=== PATIENT | male | born 1990 | race Hispanic/Latino ===

== ENCOUNTER 2017-11-30 13:53 | Inpatient (IN) | payer SELFPAY ==
[2017-11-30] MEDS ORDERED: ONDANSETRON 4 MG/2 ML VIAL ONE ×2 (14:39→19:29)
[2017-11-30] MEDS ORDERED: MORPHINE 4 MG/ML SYR ONE (14:39)
[2017-11-30] MEDS ORDERED: NA CHLORIDE 0.9% 1,000 ML ONE (14:39)
[2017-11-30 14:49] LABS: Urine Blood NEGATIVE (NEG); Urine Glucose NEGATIVE (NEG); Urine Protein 1+ (NEG); Urine Specific Gravity 1.025 (1.005-1.030)
[2017-11-30 15:00] LABS: Absolute Lymphocytes (CBC) 1.8 K/uL (0.7-4.9); Absolute Monocytes 1.2 K/uL (0.1-1.3); Absolute Neutrophil 19.5 K/uL (1.8-8.0); Basophils % 0.1 % (0-1.3); Hematocrit 50.4 % (39.6-49.0); MCH 29.3 pg (27.0-35.0); MCV 87.8 fL (80-100); MPV 10.3 fL (7.6-11.3); Monocytes % 5.2 % (3.3-12.3); RBC Red Blood Cell Count 5.75 M/uL (4.33-5.43)
--- NOTE | 2017-11-30 15:10 | RAD REPORT ---
EXAM DESCRIPTION: CTAbdomen Pelvis W Contrast - 11/30/2017 2:53 pm CLINICAL HISTORY: Abdominal pain. ABDOMINAL PAIN, IV ONLY COMPARISON: None TECHNIQUE: Biphasic CT imaging of the abdomen and pelvis was performed with 100 ml non-ionic IV cont rast. All CT scans are performed using dose optimization technique as appropriate and may include automated exposure control or mA/KV adjustment according to patient size. FINDINGS: The lung bases are clear.Small hiatal hernia. The liver, spleen, pancreas, adrenal glands and kidneys are within normal limits. No bowel obstruction, free air, free fluid or abscess. The distal appendix is dilated to 16 mm and c ontains a large appendicolith. Mild periappendiceal fat stranding seen. Tiny air bubble is seen in th e wall of the distal appendix. No evidence of significant lymphadenopathy. No suspicious bony findings. IMPRESSION: Acute appendicitis is noted as detailed above with evidence of early perforation seen.
[2017-11-30 15:13] LABS: ALT/SGPT 44 U/L (12-78); AST/SGOT 24 U/L (15-37); Alkaline Phosphatase 104 U/L (45-117); Amylase Level 43 U/L (25-115); BUN Blood Urea Nitrogen 10 mg/dL (7-18); Bicarbonate 26 mmol/L (21-32); Bilirubin Direct < 0.1 mg/dL (0-0.2); Bilirubin Total 0.5 mg/dL (0.2-1.0); Glucose Level 112 mg/dL (74-106); Lipase 201 U/L (73-393); Potassium 3.9 mmol/L (3.5-5.1); Protein, Total 8.6 g/dL (6.4-8.2); Sodium Level 135 mmol/L (136-145)
[2017-11-30] MEDS ORDERED: CEFOXITIN/SWI 1gm 1 GM/10 ML SYR ONE (15:29)
--- NOTE | 2017-11-30 15:30 | EDPHYS ---
Physician Documentation [facility] Name: Norberto Kerr Age: 27 yrs Sex: Male : 1990 Arrival Date: 11/30/2017 Time: 13:58 Bed 7 Private MD: None, None ED Physician Osmel Salter HPI: 11/30 14:53 This 27 yrs old Male presents to ER via Ambulatory with complaints of jmm Abdominal Pain, Vomiting. 14:53 The patient presents with abdominal pain in the lower abdomen, in the periumbilical jmm area. Onset: The symptoms/episode began/occurred acutely, last night. The symptoms do not radiate. Associated signs and symptoms: Pertinent positives: nausea and vomiting, Pertinent negatives: diarrhea. This is a 27 year old male with no chronic medial conditions that presents to the ED with lower abdominal pain, vomiting beginning last night. Denies recent travel, infectious exposure or recent antibiotic use. Denies surgical history. . Historical: - Allergies: 14:11 No Known Allergies; aj1 - Home Meds: 14:11 None [Active]; aj1 - PMHx: 14:11 None; aj1 - PSHx: 14:11 None; aj1 - Immunization history:: Flu vaccine is not up to date. - Social history:: Smoking status: Patient/guardian denies using tobacco. - Ebola Screening: : Patient denies travel to an Ebola-affected area in the 21 days before illness onset. ROS: 14:53 Constitutional: Negative for fever, chills, and weight loss, Cardiovascular: Negative jmm for chest pain, palpitations, and edema, Respiratory: Negative for shortness of breath, cough, wheezing, and pleuritic chest pain. 14:53 Abdomen/GI: Positive for abdominal pain, nausea and vomiting. 14:53 Back: Negative for radiated pain. 14:53 MS/extremity: Negative for pain. 14:53 Neuro: Negative for weakness. 14:53 All other systems are negative. Exam: 14:53 Head/Face: atraumatic. Chest/axilla: Normal chest wall appearance and motion. jmm Cardiovascular: Regular rate and rhythm. No edema appreciated Respiratory: Normal respirations, no respiratory distress appreciated 14:53 Constitutional: The patient appears alert, awake, uncomfortable. 14:53 Abdomen/GI: Inspection: abdomen appears normal, Bowel sounds: normal, Palpation: soft, mild abdominal tenderness, in the suprapubic area, right lower quadrant and left lower quadrant. 14:53 Back: ROM is normal, CVA tenderness, is absent. 14:53 Musculoskeletal/extremity: ROM: intact in all extremities. 14:53 Skin: Appearance: Color: normal in color. 14:53 Neuro: Orientation: is normal, Mentation: is normal, Memory: is normal. 14:53 Psych: Behavior/mood is pleasant, cooperative. Vital Signs: 14:11 BP 155 / 109; Pulse 114; Resp 20; Temp 98.2(O); Pulse Ox 96% on R/A; Weight 97.98 kg aj1 (R); Height 5 ft. 4 in. (162.56 cm) (R); Pain 9/10; 15:21 BP 138 / 100; Pulse 107; Resp 16; Pulse Ox 95% on R/A; ae1 16:36 BP 146 / 94; Pulse 105; Resp 17; Pulse Ox 97% on R/A; ae1 16:40 Temp 98.1(O); ae1 16:46 BP 149 / 94; Pulse 105; Resp 16; Pulse Ox 100% ; jl7 14:11 Body Mass Index 37.08 (97.98 kg, 162.56 cm) aj1 MDM: 14:30 Patient medically screened. [facility] 15:27 Data reviewed: vital signs, nurses notes. Counseling: I had a detailed discussion with meli the patient and/or guardian regarding: the historical points, exam findings, and any diagnostic results supporting the discharge/admit diagnosis, lab results, radiology results, the need for further work-up and treatment in the hospital. ED course: Dr. Silveira discussed the patient with Dr. Otero whom accepted admission. . 11/30 14:30 Order name: Urine Dipstick--Ancillary (enter results); Complete Time: 14:58 ag 11/30 14:31 Order name: Amylase, Serum; Complete Time: 15:20 [facility] 11/30 14:31 Order name: Basic Metabolic Panel; Complete Time: 15:20 [facility] 11/30 14:31 Order name: CBC with Diff; Complete Time: 16:10 [facility] 11/30 14:31 Order name: Creatinine for Radiology; Complete Time: 15:20 [facility] 11/30 14:31 Order name: Hepatic Function; Complete Time: 15:20 [facility] 11/30 14:31 Order name: Lipase; Complete Time: 15:20 [facility] 11/30 14:31 Order name: Urine Microscopic Only [facility] 11/30 15:31 Order name: Manual Differential; Complete Time: 16:10 [facility] 11/30 15:35 Order name: Basic Metabolic Panel [facility] 11/30 15:35 Order name: Basic Metabolic Panel [facility] 11/30 15:35 Order name: CBC with Automated Diff [facility] 11/30 15:35 Order name: CBC with Automated Diff [facility] 11/30 14:31 Order name: IV Saline Lock; Complete Time: 14:55 [facility] 11/30 14:31 Order name: Labs collected and sent; Complete Time: 14:55 [facility] 11/30 14:31 Order name: Urine Dipstick-Ancillary (obtain specimen); Complete Time: 14:33 [facility] 11/30 14:31 Order name: CT Abd/Pelvis - W/Contrast; Complete Time: 15:20 [facility] 11/30 15:35 Order name: NPO [facility] 11/30 15:35 Order name: Lipase [facility] 11/30 15:35 Order name: Lipase [facility] 11/30 15:35 Order name: Liver (Hepatic) Function [facility] 11/30 15:35 Order name: Liver (Hepatic) Function [facility] Administered Medications: 14:50 Drug: NS 0.9% 1000 ml Route: IV; Rate: 1 bolus; Site: left antecubital; ae1 15:35 Follow up: IV Status: Completed infusion ae1 14:50 Drug: Zofran 4 mg Route: IVP; Site: left antecubital; ae1 15:33 Follow up: Response: Nausea is decreased ae1 14:55 Drug: morphine 4 mg Route: IVP; Site: left antecubital; ae1 15:23 Follow up: Response: Pain is decreased ae1 15:26 Drug: Mefoxin 1 grams Route: IVPB; Infused Over: 30 mins; Site: left antecubital; ae1 16:00 Follow up: IV Status: Completed infusion ae1 Disposition: 12/01 10:31 Co-signature as Attending Physician, Osmel Salter MD. Disposition: 11/30/17 15:29 Hospitalization ordered by Michael Otero for Inpatient Admission. Preliminary diagnosis is Acute appendicitis. - Bed requested for Telemetry/MedSurg (Inpatient). - Status is Inpatient Admission. jl7 - Condition is Stable. - Problem is new. - Symptoms are unchanged. UTI on Admission? No Signatures: Dispatcher [employer] [facility] Miranda Valdivia, RN RN aj1 Teresa Gonzales RN RN dw Addison Dennis PA PA [facility] Sarmad Danielle RN RN ae1 Danika Flor RN RN jl7 Osmel Salter MD MD gs Corrections: (The following items were deleted from the chart) 11/30 15:32 15:17 CBC Smear Scan ordered. [facility] 16:47 15:29 Hospitalization Ordered by Michael Otero MD for Inpatient Admission. Preliminary diagnosis is Acute appendicitis. Bed requested for Telemetry/MedSurg (Inpatient). Status is Inpatient Admission. Condition is Stable. Problem is new. Symptoms are unchanged. UTI on Admission? No. [facility] 16:51 16:47 11/30/2017 15:29 Hospitalization Ordered by Michael Otero MD for Inpatient jl7 Admission. Preliminary diagnosis is Acute appendicitis. Bed requested for Telemetry/MedSurg (Inpatient). Status is Inpatient Admission. Condition is Stable. Problem is new. Symptoms are unchanged. UTI on Admission? No. dw
--- NOTE | 2017-11-30 15:30 | ER ---
Nurse's Notes [facility] Name: Norberto Kerr Age: 27 yrs Sex: Male : 1990 Arrival Date: 11/30/2017 Time: 13:58 Bed 7 Private MD: None, None Diagnosis: Acute appendicitis Presentation: 11/30 14:06 Presenting complaint: Friend states: "He's having abdominal pain at the top of the aj1 stomach and vomiting. I gave him Tylenol and Pepto-bismol but he kept throwing up" reports this has been going on since last night. Denies fever, diarrhea. Transition of care: patient was not received from another setting of care. Onset of symptoms was November 29, 2017. Risk Assessment: Do you want to hurt yourself or someone else? Patient reports no desire to harm self or others. Initial Sepsis Screen: Does the patient meet any 2 criteria? HR > 90 bpm. No. Patient's initial sepsis screen is negative. Does the patient have a suspected source of infection? No. Patient's initial sepsis screen is negative. Care prior to arrival: None. 14:06 Method Of Arrival: Ambulatory aj 14:06 Acuity: TEVIN 3 aj1 Triage Assessment: 14:11 General: Appears uncomfortable, Behavior is calm, cooperative, appropriate for age. aj1 Pain: Complains of pain in epigastric area Pain currently is 9 out of 10 on a pain scale. GI: Abdomen is non-distended, Reports nausea, vomiting, Patient currently denies diarrhea. Historical: - Allergies: 14:11 No Known Allergies; aj1 - Home Meds: 14:11 None [Active]; aj1 - PMHx: 14:11 None; aj1 - PSHx: 14:11 None; aj1 - Immunization history:: Flu vaccine is not up to date. - Social history:: Smoking status: Patient/guardian denies using tobacco. - Ebola Screening: : Patient denies travel to an Ebola-affected area in the 21 days before illness onset. Screenin:52 Abuse screen: Denies threats or abuse. Nutritional screening: No deficits noted. ae1 Tuberculosis screening: No symptoms or risk factors identified. Fall Risk None identified. Assessment: 14:30 General: Appears in no apparent distress. uncomfortable, Behavior is cooperative, ae1 anxious. Pain: Complains of pain in abdomen. Neuro: Level of Consciousness is awake, alert, obeys commands, Oriented to person, place, time, situation. Cardiovascular: Heart tones S1 S2 present Patient's skin is warm and dry. Respiratory: Airway is patent Respiratory effort is even, unlabored, Respiratory pattern is regular, symmetrical, Breath sounds are clear bilaterally. GI: Abdomen is round Bowel sounds present X 4 quads. Abd is soft and non tender X 4 quads. : No deficits noted. EENT: No deficits noted. Derm: Skin is pale. Musculoskeletal: No signs and/or symptoms reported regarding the musculoskeletal system. 15:00 Reassessment: Patient appears in no apparent distress at this time. Patient and/or ae1 family updated on plan of care and expected duration. Pain level reassessed. States pain is decreased. 15:55 Reassessment: Dr. Otero is a bedside discussing plan of care. ae1 Vital Signs: 14:11 BP 155 / 109; Pulse 114; Resp 20; Temp 98.2(O); Pulse Ox 96% on R/A; Weight 97.98 kg aj1 (R); Height 5 ft. 4 in. (162.56 cm) (R); Pain 9/10; 15:21 BP 138 / 100; Pulse 107; Resp 16; Pulse Ox 95% on R/A; ae1 16:36 BP 146 / 94; Pulse 105; Resp 17; Pulse Ox 97% on R/A; ae1 16:40 Temp 98.1(O); ae1 16:46 BP 149 / 94; Pulse 105; Resp 16; Pulse Ox 100% ; jl7 14:11 Body Mass Index 37.08 (97.98 kg, 162.56 cm) aj1 ED Course: 13:58 Patient arrived in ED. mr 13:59 None, None is Private Physician. mr 14:10 Triage completed. aj1 14:11 Arm band placed on Patient placed in an exam room. aj1 14:13 Addison Dennis PA is PHCP. jm 14:13 Osmel Salter MD is Attending Physician. [facility] 14:19 Sarmad Danielle, SIL is Primary Nurse. ae1 14:52 CT completed. Patient moved to CT via wheelchair. Patient moved back from CT. kw1 14:52 Inserted saline lock: 22 gauge in left antecubital area, using aseptic technique. Blood ae1 collected. 14:53 CT Abd/Pelvis - W/Contrast In Process Unspecified. EDMS 15:15 Placed in gown. Bed in low position. Call light in reach. Side rails up X 1. Adult w/ ae1 patient. Pulse ox on. NIBP on. 15:17 Warm blanket given. ae1 15:29 Michael Otero MD is Hospitalizing Provider. [facility] 16:46 No provider procedures requiring assistance completed. Patient admitted, IV remains in jl7 place. intact, No redness/swelling at site. Administered Medications: 14:50 Drug: NS 0.9% 1000 ml Route: IV; Rate: 1 bolus; Site: left antecubital; ae1 15:35 Follow up: IV Status: Completed infusion ae1 14:50 Drug: Zofran 4 mg Route: IVP; Site: left antecubital; ae1 15:33 Follow up: Response: Nausea is decreased ae1 14:55 Drug: morphine 4 mg Route: IVP; Site: left antecubital; ae1 15:23 Follow up: Response: Pain is decreased ae1 15:26 Drug: Mefoxin 1 grams Route: IVPB; Infused Over: 30 mins; Site: left antecubital; ae1 16:00 Follow up: IV Status: Completed infusion ae1 Outcome: 15:29 Decision to Hospitalize by Provider. [facility] 16:46 Admitted to OR accompanied by nurse, via wheelchair, room 210, with chart, Other [facility] Transported to OR with SIL Yeh 16:46 Condition: stable 16:46 Discharge instructions given to patient, Instructed on the need for admit, Demonstrated understanding of instructions. 16:51 Patient left the ED. [facility] Signatures: Dispatcher [employer] EDMS Miranda Valdivia, RN RN aj1 Addison Dennis PA PA jmm Rivera, Maria mr Sarmad Danielle RN RN ae1 Danika Flor RN RN jl7 Erica Lowe kw1
[2017-11-30 15:32] LABS: Platelet Estimate ADEQ
[2017-11-30] MEDS ORDERED: MORPHINE 4 MG/ML SYR IV PRN (15:32)
[2017-11-30] MEDS ORDERED: ACETAMINOPHEN 500 MG TAB PO PRN (15:32)
[2017-11-30] MEDS ORDERED: ONDANSETRON 4 MG/2 ML VIAL IV PRN (15:32)
[2017-11-30 15:33] LABS: Blood Morphology Comment NOT SEEN (NOT SEEN)
--- NOTE | 2017-11-30 16:16 | P.HP ---
Date of Service: 11/30/17 PC: This 27-year-old male presents emergency room with severe right lower quadrant abdominal pain for diagnosis and treatment. HPC: Patient had sudden onset of right lower quadrant abdominal pain. Began yesterday evening. Has intensified throughout the day. Now hurts whenever he tries to walk. Associated with nausea and vomiting. PMH: Negative PSHx: Denies any surgeries SOC: No known allergies SYS REVIEW: No cough, wheeze, shortness of breath. No chest pain or palpitations. Previously in good health. Works as a extrusion operator. O/E awake alert very uncomfortable HEENT: Not jaundice Chest: Chest movement equal bilaterally ABD: Tenderness with guarding and rebound in the right lower quadrant LOCO: Intact DATA: Elevated white cell count, CT scan demonstrates acute appendicitis with possible rupture IMPRESSION: Acute abdomen with acute appendicitis PLAN: I will take him to the operating room for laparoscopic possible open appendectomy. The risks of this procedure have been discussed. The possibility of bleeding, infection, injury to bowel and blood vessels has been described. The possibility of an open and/or further surgeries and procedures was discussed. He understands and wants us to proceed. He has a friend here who speaks [place], and we conversed through him.
[2017-11-30] MEDS ORDERED: Ringers Lactate 1,000 ML IV ONE (16:42)
[2017-11-30] MEDS ORDERED: PROPOFOL 200 MG/20 ML VIAL IV ONE (17:58)
[2017-11-30] MEDS ORDERED: FENTANYL CITR 100 MCG/2 ML ONE ×2 (17:58→18:36)
[2017-11-30] MEDS ORDERED: ROCURONIUM 50 MG/5 ML VIAL IV ONE ×2 (17:58→18:32)
[2017-11-30] MEDS ORDERED: LIDOCAINE 2% MPF 5 ML VIAL ONE (17:59)
[2017-11-30] MEDS ORDERED: CEFOXITIN 1 GM in NA CHLORIDE 0.9% 100 ML IVPB SCH (18:00)
[2017-11-30] MEDS ORDERED: DEXAMETHASONE 10 MG/ML VIAL ONE (18:36)
[2017-11-30] MEDS ORDERED: KETOROLAC 30 MG/ML INJ ONE (18:37)
[2017-11-30] MEDS ORDERED: NEOSTIGMINE 1 MG/ML -5 ML SYRINGE ONE (18:41)
[2017-11-30] MEDS ORDERED: GLYCOPYRROLATE 0.2 MG/ML SYR ONE (18:41)
--- NOTE | 2017-11-30 19:24 | P.OP ---
Preoperative diagnosis: Acute abdomen with appendicitis Postoperative diagnosis: The same Primary procedure: Laparoscopic appendectomy Anesthesia: General Estimated blood loss: Less than 10 cc Specimen: 1 appendix Findings: Inflamed appendix Operative Technique: The patient brought the operating room and placed supine on the table. After the induction of adequate general endotracheal anesthesia, the area of the abdomen was prepped with a DuraPrep solution, and he was draped in usual aseptic manner. A subumbilical incision was made. This was brought down through the skin and subcutaneous tissue. We entered the fascia at the umbilicus. The patient does have a small umbilical hernia. A 5 mm trocar was then placed in the lower midline, and another on the right lateral side of the abdomen. The patient was then placed in reverse Trendelenburg and rolled to the left. We could visualize the right lower quadrant. We could see an acutely inflamed appendix. It was in the retroperitoneum. The appendix was grasped and the peritoneum divided to free the tip of this markedly inflamed appendix. The mesentery of the appendix was then taken down partially using the electro cautery. The junction of the appendix was identified with the cecum. A window was made into the mesentery of the appendix. The linear Stapler was now introduced into the peritoneal cavity with the camera in the right upper quadrant. We were able to place since across the base of the appendix. The instrument was fired. The mesentery of the appendix was now inspected. We could see with the vascular bundle came in. A vascular reload was now used to take down this portion of the appendix itself. The appendix having been freed, was placed into an Endo-Catch was then brought out through the umbilical trocar site. The right lower quadrant was now inspected hemostasis was ensured. The suture line was identified and found to be nonbleeding. The patient was now returned to the neutral position on the OR table. The umbilical trocar site was now approximated with 2 sutures of absorbable material. The pneumoperitoneum was now collapsed, the sutures tied, and the trocars withdrawn. At the end of the procedure he was stable when sent to the recovery room. Needle sponge instrument count were correct. No drains were placed. Complications: None Transferred to: Recovery Room Condition: Good
[2017-11-30 20:26] VITALS: BMI 34.0
[2017-11-30] MEDS: D5 0.45 NS 1,000 ML IV SCH (20:32)
[2017-11-30] MEDS: HYDROCODONE/APAP 7.5/325 MG TAB PO PRN (23:18)
[2017-12-01] MEDS ORDERED: CEFOXITIN/SWI 1gm 1 GM/10 ML SYR IV SCH
[2017-12-01] MEDS: CEFOXITIN/SWI 1gm 1 GM/10 ML SYR IV SCH ×5 (00:30→23:07)
[2017-12-01] MEDS: D5 0.45 NS 1,000 ML IV SCH ×4 (05:39→23:06)
[2017-12-01] MEDS: HYDROCODONE/APAP 7.5/325 MG TAB PO PRN ×3 (10:01→19:36)
[2017-12-02] MEDS: HYDROCODONE/APAP 7.5/325 MG TAB PO PRN (00:11)
[2017-12-02 00:53] VITALS: O2SAT 95
[2017-12-02] MEDS: CEFOXITIN/SWI 1gm 1 GM/10 ML SYR IV SCH ×2 (05:26→11:46)
[2017-12-02] MEDS: D5 0.45 NS 1,000 ML IV SCH (08:00)
[2017-12-02 12:09] VITALS: BP 126/65; TEMP 97.2
== END 2017-12-02 17:54 | disposition home or self-care (01) | DRG 343 ==
LOC: ER 13:53 → ERHOLD 15:31 → 2ND 16:54
PROVIDERS: ADMIT Surgery; ATTEND Surgery
PROC: 0DTJ4ZZ Resection of Appendix, Percutaneous Endoscopic Approach (ICD-10-PCS; principal; 2017-11-30 18:00)
DX: K35.80 Unspecified acute appendicitis (principal); K42.9 Umbilical hernia without obstruction or gangrene
CPT/HCPCS: 36415; 74177; 80048; 80076; 81003; 82150; 83690; 85025; 88304; 96361; 96365; 96375; 99285; J1100; J2405; J2710; J3010; J7030; Q9967